=== PATIENT | female | born 1955 | race Caucasian/White ===

== ENCOUNTER → 2016-06-10 | Outpatient (CLI) | payer OTHER ==
[2016-06-10 09:07] LABS: HEMOGLOBIN 13.6 g/dL (12.2-16.2); LYMPH # 1.3 K/mm3 (0.7-4.5); LYMPH % 15.9 % (10-50.0)
[2016-06-10 14:57] LABS: BUN 17 mg/dL (7-18); GFR (ESTIMATED) 56 ML/MIN (59-)
--- NOTE | 2016-06-12 10:42 | RADIOLOGY REPORT PS360 ---
US THYROID HISTORY: Follow-up thyroid nodules THYROID NODULE COMPARISON: 08/21/2014 FINDINGS: The right lobe measures 3.8 x 1.2 x 1.7 cm. Left lobe measures 4.5 x 1.3 x 1.6 cm. There are multiple bilateral solid-appearing thyroid nodules There are at least 2 nodules on the right which measure 1 cm one in the midpole and one in the lower pole. These do not appear significantly changed. There are multiple small solid nodules on the left the largest of which is in the mid aspect of the left lobe 1.4 x 0.6 cm. This is better demonstrated on today's study but does not appear significantly changed. There is a 8 mm cystic lesion in the lower pole on the left which is slightly increased in size previously measuring 6 mm. IMPRESSION: Bilateral thyroid nodules as described above
--- NOTE | 2016-06-16 21:04 | RADIOLOGY REPORT PS360 ---
DIG MAMM-SCREEN STEPHANIE W/CAD ORDERING PHYSICIAN : Naida Abraham APRN PATIENT AGE: 60 years GENDER: Female COMPARISON: June 2013 & February 2015, & June 2012 bilateral screening mammogram INDICATION: 60-year-old. Routine screening. No complaints. Does taking female hormones the past year. Previous breast biopsies. Right breast papilloma. Left breast fibroadenoma. TECHNIQUE: MLO and cc views both breasts. FINDINGS: Moderate residual fibroglandular elements towards superior, upper-outer quadrant both breast. RIGHT BREAST. The homogeneous glandular tissue upper right breast appears similar to prior study. The areas of scattered focal density in the right breast are stable since 2014 study. No significant new areas of concern. Follow-up in one year the adequate on right . Also note Small metallic marker axillary right breast from previous percutaneous biopsy LEFT BREAST. Previously reviewed this study but have become back and again review the left breast. There is subtle suggestion of possible vague low-density ovoid area lateral left breast measuring up to 2.1 cm. This is labeled X.. Possible Summation shadow or a vague lipoma given its low-density. I do not believe this significant but is a change since prior study I would suggest the patient return for spot view MLO, 90 degrees, and cc spot to further evaluate along with ultrasound of this region. But is a subtle change since prior study be. A very vague round area towards the lateral left breast which I suspect is a vaguely evident lipoma spanning up to 2.1 cm and labeled X. Best seen on the cc view. Remainder the left breast appears stable ----IMPRESSION: Left BREAST: After Question a vague, subtle new round low-density area upper outer quadrant left breast. ~Just over 2.1 cm diameter on cc view.. . May be a developing lipoma versus summation shadow but warrants additional spot views and ultrasound to further evaluate. Right breast: No new findings. Follow-up in one year. BI-RADS CATEGORY: 0_Incomplete: Need additional imaging. RECOMMENDED FOLLOWUP: ADD ADDITIONAL IMAGING Left breast spot views and ultrasound (A letter has been sent to the patient regarding results of the study.)
== END ==
LOC: RAD 08:52
PROVIDERS: Nurse Practitioner Family
DX: E04.1 Nontoxic single thyroid nodule (principal); Z12.31 Encounter for screening mammogram for malignant neoplasm of breast; E11.9 Type 2 diabetes mellitus without complications; E78.00 Pure hypercholesterolemia, unspecified; I10 Essential (primary) hypertension; E53.8 Deficiency of other specified B group vitamins
CPT/HCPCS: G0202

== ENCOUNTER → 2016-06-27 | Outpatient (CLI) | payer OTHER ==
--- NOTE | 2016-06-29 11:29 | RADIOLOGY REPORT PS360 ---
US BREAST-LT COMPLETE W/AXILLA, DIG MAMM-DX UNI LT W/AVS W/CAD ORDERING PHYSICIAN : Naida Abraham APRN PATIENT AGE: 60 years GENDER: Female INDICATION: ABNORMAL MAMM densities on recent screening mammogram upper outer quadrant left breast TECHNIQUE: Left breast ultrasound followed by spot views mammogram today COMPARISON: Mammogram June 10, 2016, March 04, 2015, August 2014 ---ULTRASOUND LEFT BREAST COMPLETE with axilla survey FINDINGS Ultrasound demonstrates some elongated hypoechoic areas which may reflect some mildly hypoechoic breast tissue versus elongated grouping of scattered small debris filled cyst at the 2:00 upper outer quadrant breast. . One area measuring 10 mm x 3 mm and the other 9 mm x 4 mm. Elongated appearance and following tissue plane the supporting benign character as well. These may contribute to the subtle minimal nodularity in overall density seen on recent mammography.. 2:00. Small cluster of cyst outer breast 2:00 spanning 7 mm x 4.5 mm. There is another small separate area labeled #2 on images at 2:00 outer breast which appears to be a septated debris-filled likely apocrine cyst measuring up to 7 mm x 4.4 mm Bilaterally There is a third small debris-filled cystic area 2:00 outer breastlabeled #3 on images. This spans 7.6 mm x 5 mm overall but actually comprised of 2 smaller cysts adjacent to one another. The above benign appearing observations can be followed . Axillary survey reveals no significant findings.. . -----DIAGNOSTIC DIGITAL MAMMOGRAM------- Spot views left breast including CC, MLO, 90 degree Additional spot views decreased concern regarding a significant new finding the area seems to compress out. On the MLO and 90 degree views. Still there is some vague density on the cc view but appears more compatible with previous studies and thus follow-up in 6 months would be adequate. ======= ------ IMPRESSION/summary: Vague low density areas upper-outer quadrant left breast less evident on today's spot views. Only scattered small cysts are seen throughout upper-outer quadrant left breast with today's ultrasound. No suspicious areas. Follow-up left mammogram and ultrasound 5- 6 months recommended. BI-RADS CATEGORY: 3_Probably Benign-Short Term F/U RECOMMENDED FOLLOWUP: 5- 6 month follow-up mammogram and ultrasound (A letter has been sent to the patient regarding results of the study.)
== END ==
LOC: RAD 12:42
DX: R92.8 Other abnormal and inconclusive findings on diagnostic imaging of breast (principal)
CPT/HCPCS: G0206-LT